=== PATIENT | female | born 1955 | race Caucasian/White ===

== ENCOUNTER → 2017-04-19 | Outpatient (CLI) | payer OTHER | LOC: HEART 5 08:54 | DX: R06.02 Shortness of breath (principal); J98.4 Other disorders of lung | CPT/HCPCS: 94060; 94729 ==

== ENCOUNTER → 2017-07-07 | Outpatient (CLI) | payer OTHER | LOC: CT 08:47 | DX: I67.9 Cerebrovascular disease, unspecified (principal); R10.13 Epigastric pain; K76.0 Fatty (change of) liver, not elsewhere classified; N28.1 Cyst of kidney, acquired | CPT/HCPCS: J7050; Q9962 ==

== ENCOUNTER → 2021-04-15 | Outpatient (CLI) | payer OTHER | LOC: EXRD 08:30 | DX: K75.81 Nonalcoholic steatohepatitis (NASH) (principal) | CPT/HCPCS: 76705 ==

== ENCOUNTER → 2021-10-20 | Outpatient (CLI) | payer OTHER ==
[~2021-10-20] MED LIST: Voltaren Gel 1 % TOP
[2021-10-20 13:41] LABS: RED BLOOD COUNT 4.08 M/UL (4.00-5.10); WHITE BLOOD COUNT 9.6 K/UL (4.5-11.0)
== END ==
LOC: LAB 12:37
PROVIDERS: Internal Medicine Gastroenterology
DX: K75.81 Nonalcoholic steatohepatitis (NASH) (principal)
CPT/HCPCS: 36415; 85027

== ENCOUNTER 2021-10-21 15:29 | Emergency (ER) | payer OTHER ==
[2021-10-21 17:57] LABS: HEMOGLOBIN 11.8 gm/dl (12.3-15.3); RED BLOOD COUNT 3.96 M/UL (4.00-5.10); WHITE BLOOD COUNT 8.7 K/UL (4.5-11.0)
[2021-10-21 18:45] LABS: BUN/CREATININE RATIO 20 (0-10)
[2021-10-21] MEDS ORDERED: Voltaren Gel 1 % TOP (19:43)
== END 2021-10-21 19:58 | disposition home or self-care (01) ==
LOC: ER1 15:29
PROVIDERS: Physician Assistant Medical
DX: M79.661 Pain in right lower leg (principal); E11.9 Type 2 diabetes mellitus without complications; I10 Essential (primary) hypertension; E07.9 Disorder of thyroid, unspecified
CPT/HCPCS: 80053; 85025; 85610; 85730; 93971; 99284

== ENCOUNTER → 2021-12-08 | Outpatient (CLI) | payer OTHER ==
[~2021-12-08] MED LIST changes: +ACIPHEX20 MG PO; +CATAPRES 0.1MG0.1 MG PO; +COQ-10100 MG PO; +GLIPIZIDE XL10 MG PO; +HYDROCORTISONE15 GM TP; +LEVOTHYROXINE150 MC1 PO; +LOTENSIN40 MG PO; +NORVASC2.5 MG PO; +NOVOLOG FL100 UNIT/1 SQ; +OZEMPIC1 MG/0.71 SQ; +PEPCID20 MG PO; +PRAMIPEXOLE DIHY1 MG PO; +SPIRONOLACTONE50 MG PO; +TOPROL XL 25 MG25 MG PO; +TRESIBA FL100 UNIT/1 SQ; +VITAMIN D21250 MCG PO; +ZOLOFT100 MG PO
[2021-12-08 14:10] LABS: RED BLOOD COUNT 4.18 M/UL (4.00-5.10); WHITE BLOOD COUNT 8.9 K/UL (4.5-11.0)
[2021-12-08 14:27] LABS: BUN/CREATININE RATIO 19 (0-10)
== END ==
LOC: OPSV2 12:30 → EDSTATUS 12:30 → OPSV2 12:49
PROVIDERS: Orthopaedic Surgery
DX: Z01.818 Encounter for other preprocedural examination (principal); M17.12 Unilateral primary osteoarthritis, left knee
CPT/HCPCS: 36415; 80048; 83036; 85027; 93005

== ENCOUNTER → 2021-12-15 | Outpatient (CLI) | payer OTHER | LOC: EROP 10:58 | DX: U07.1 COVID-19 (principal); E11.9 Type 2 diabetes mellitus without complications; I10 Essential (primary) hypertension; J45.909 Unspecified asthma, uncomplicated; Z23 Encounter for immunization | CPT/HCPCS: M0247; Q0247 ==

== ENCOUNTER → 2022-01-12 | Outpatient (CLI) | payer OTHER ==
[2022-01-12 11:25] LABS: HEMOGLOBIN 11.7 gm/dl (12.3-15.3); RED BLOOD COUNT 4.04 M/UL (4.00-5.10); WHITE BLOOD COUNT 8.5 K/UL (4.5-11.0)
[2022-01-12 12:00] LABS: BUN/CREATININE RATIO 23 (0-10)
== END ==
LOC: EDSTATUS 10:00 → OPSV2 10:00
PROVIDERS: Orthopaedic Surgery
DX: Z01.818 Encounter for other preprocedural examination (principal); M17.12 Unilateral primary osteoarthritis, left knee
CPT/HCPCS: 36415; 80048; 85025; 93005

== ENCOUNTER → 2022-01-24 | Outpatient (CLI) | payer OTHER ==
[~2022-01-24] MED LIST changes: +ARTHRITIS PAIN150 GM TP
[2022-01-24 11:50] LABS: BUN/CREATININE RATIO 16 (0-10)
== END ==
LOC: LAB 10:39
PROVIDERS: Orthopaedic Surgery
DX: Z01.812 Encounter for preprocedural laboratory examination (principal)
CPT/HCPCS: 36415; 80048; 86850; 86900; 86901

== ENCOUNTER 2022-01-25 05:32 | Inpatient (IN) | payer OTHER ==
[~2022-01-25] VITALS: Ht 160 cm; Wt 107.0 kg
[~2022-01-25 05:32] MED LIST changes: -ARTHRITIS PAIN150 GM TP; -TOPROL XL 25 MG25 MG PO; -VITAMIN D21250 MCG PO
[2022-01-25 06:52] LABS: BUN/CREATININE RATIO 21 (0-10)
[2022-01-25] MEDS ORDERED: VITAMIN D21250 MCG PO (12:48)
[2022-01-25] MEDS ORDERED: TOPROL XL 25 MG25 MG PO (12:52)
[2022-01-25] MEDS ORDERED: ARTHRITIS PAIN150 GM TP (13:22)
[2022-01-26 03:18] LABS: HEMOGLOBIN 11.1 gm/dl (12.3-15.3); RED BLOOD COUNT 3.84 M/UL (4.00-5.10); WHITE BLOOD COUNT 10.6 K/UL (4.5-11.0)
[2022-01-26 04:02] LABS: BUN/CREATININE RATIO 32 (0-10)
[2022-01-27 03:34] LABS: HEMOGLOBIN 10.6 gm/dl (12.3-15.3); RED BLOOD COUNT 3.67 M/UL (4.00-5.10); WHITE BLOOD COUNT 9.5 K/UL (4.5-11.0)
[2022-01-27 05:40] LABS: BUN/CREATININE RATIO 36 (0-10)
[2022-01-27] MEDS ORDERED: ELIQUIS 2.5 MG2.5 MG PO (09:08)
[2022-01-27] MEDS ORDERED: ROXICODONE5 MG PO (09:43)
== END 2022-01-27 12:18 | disposition home health service (06) | DRG 470 ==
LOC: M/S 05:32 → ZOBSOF 05:32 → M/S 11:12
PROVIDERS: ADMIT Orthopaedic Surgery
PROC: 0SRD0J9 Replacement of Left Knee Joint with Synthetic Substitute, Cemented, Open Approach (ICD-10-PCS; principal; 2022-01-25 07:30)
DX: M17.12 Unilateral primary osteoarthritis, left knee (principal); I10 Essential (primary) hypertension; K21.9 Gastro-esophageal reflux disease without esophagitis; Z20.822 Contact with and (suspected) exposure to COVID-19; E11.9 Type 2 diabetes mellitus without complications; F41.9 Anxiety disorder, unspecified; K44.9 Diaphragmatic hernia without obstruction or gangrene; M79.7 Fibromyalgia; R32 Unspecified urinary incontinence; K75.81 Nonalcoholic steatohepatitis (NASH); I97.3 Postprocedural hypertension; K74.60 Unspecified cirrhosis of liver; G25.81 Restless legs syndrome; Z87.19 Personal history of other diseases of the digestive system; Z90.49 Acquired absence of other specified parts of digestive tract; Z90.710 Acquired absence of both cervix and uterus; Z90.12 Acquired absence of left breast and nipple; Z80.9 Family history of malignant neoplasm, unspecified; Z88.6 Allergy status to analgesic agent; Z88.1 Allergy status to other antibiotic agents; Z88.2 Allergy status to sulfonamides; Z88.8 Allergy status to other drugs, medicaments and biological substances; Z87.01 Personal history of pneumonia (recurrent)
CPT/HCPCS: 36415; 73560; 76000; 80048; 82962; 85025; 97116-GP-CQ; 97161; 97166; 97530-GP-CQ; 97535; C1776; J0690; J1170; J1885; J2001; J2370; J2704; J7120

== ENCOUNTER → 2022-03-11 | Outpatient (CLI) | payer OTHER ==
[~2022-03-11] MED LIST changes: +ARTHRITIS PAIN150 GM TP; +ELIQUIS 2.5 MG2.5 MG PO; +ROXICODONE5 MG PO; +TOPROL XL 25 MG25 MG PO; +VITAMIN D21250 MCG PO
== END ==
LOC: NM 13:58
DX: K75.81 Nonalcoholic steatohepatitis (NASH) (principal); K31.89 Other diseases of stomach and duodenum; E11.43 Type 2 diabetes mellitus with diabetic autonomic (poly)neuropathy
CPT/HCPCS: 78264; A9541